=== PATIENT | male | born 1960 ===

== ENCOUNTER → 2019-01-03 | Outpatient (CLI) | payer MEDICAID ==
[~2019-01-03] VITALS: Ht 177.8 cm; Wt 71.2 kg
[~2019-01-03] MED LIST: AMLODIPINE BESYL5 MG ORAL; ASPIRIN EC81 MG ORAL; ATORVASTATIN CA20 MG ORAL; FOLIC ACID1 MG ORAL; GABAPENTIN100 MG ORAL; TRAMADOL HCL50 MG ORAL; TRAZODONE HCL50 MG ORAL
--- NOTE | 2019-01-03 22:00 | Consultation ---
DATE OF CONSULTATION: 01/03/2019 CONSULTING PHYSICIAN: Nabil Bain M.D. CHIEF COMPLAINT: Referral for endoscopy and colonoscopy. PAST MEDICAL HISTORY: 1. Alcoholic cirrhosis. 2. Pancreatitis. 3. Neuropathy. 4. Peripheral vascular disease. PAST SURGICAL HISTORY: 1. Left leg stent placement. 2. Left arm stent placement. 3. Right leg . Currently, the patient walks with a walker. MEDICATIONS: Please see medication reconciliation list. FAMILY HISTORY: No family history of GI malignancies. SOCIAL HISTORY: The patient is a heavy smoker for 40 years, now on electronic tobacco. Alcohol, the patient quit drinking. No drug abuse. ALLERGIES: No known allergies. REVIEW OF SYSTEMS: A 10-point review of systems was performed and pertinent positives in HPI. PHYSICAL EXAMINATION: VITAL SIGNS: Temperature 98.4, blood pressure is 120/69, pulse is 80, respirations 20. HEENT: Normocephalic and atraumatic. Sclerae anicteric. NECK: Supple. No evidence of obvious lymphadenopathy. CARDIOVASCULAR: Regular rate and rhythm. Plus S1 and S2. LUNGS: Clear to auscultation bilaterally. ABDOMEN: Positive bowel sounds. Soft and nontender. No rebound. No guarding. No peritoneal sign. EXTREMITIES: No cyanosis. No clubbing. No edema ASSESSMENT AND PLAN: This is a 58-year-old male with past medical history of possible alcoholic cirrhosis needs endoscopy for evaluation of varices. Most likely will need an abdominal ultrasound for follow up on the cirrhosis and rule out malignancy. Also needs a screening colonoscopy given his age. Plan to do all that when authorization is obtained. The patient was given instruction for the colonoscopy and the prep. He was informed of the risks and benefits of procedure. Now with pending authorization for above procedure. Nabil Bain M.D. DR: IDALIA JOB#: [id number] CC:
[2019-01-04 09:59] VITALS: BP 129/69
== END | disposition home or self-care (01) ==
LOC: PAN 13:25
DX: K70.31 Alcoholic cirrhosis of liver with ascites (principal); G62.9 Polyneuropathy, unspecified; Z87.891 Personal history of nicotine dependence
CPT/HCPCS: G0463